=== PATIENT | male | born 1935 | race Caucasian/White ===

== ENCOUNTER → 2017-05-28 | Outpatient (CLI) | payer MEDICARE, OTHER ==
[2015-02-02 13:40] VITALS: BP 123/68
[~2017-05-28] MED LIST: ASPI81TA44 PO; ATOR10TA PO; CALC-98 PO; DOCU-109 PO; GABA-585 PO; GABA600T2 PO; GADOBUTROL 7.5 MMOL/7.5 ML VIAL IV ONE; HYDR-2679 PO; HYDR-2762 PO; HYDR-2802 PO; IBUP100T PO; IBUP200C9 PO; OMEG-33 PO; PRED-220 PO; TRAV5DRO OU; UBID50TA PO; VIT1CAPS11 PO
[2017-05-28 11:28] LABS: CREATININE 1.2 mg/dL (0.7-1.3); GFR 58.3
--- NOTE | 2017-05-28 12:35 | RAD ---
EXAMINATION: Magnetic resonance imaging (MRI) of the cervical spine without contrast HISTORY: Lower extremity weakness, left greater than right TECHNIQUE: Multiplanar multi-weighted MRI of the cervical spine was performed without intravenous contrast using the standard cervical spine protocol. Contrast information: None administered. COMPARISON: None available. FINDINGS: There is minimal anterolisthesis of C4 on C5. Vertebral bodies demonstrate normal signal intensity on all sequences. No acute fracture is identified; however, if trauma is suspected, a CT scan would be a more sensitive examination for fractures. The craniocervical junction is normal. The visualized portions of the skull base and the posterior fossa are normal. The spinal cord demonstrates normal signal intensity on all sequences. There is disc height loss and disc desiccation at C5-C6 and C6-C7. No soft tissue abnormality is identified. Normal signal voids are present in the vertebral arteries. C2-C3: The disk is normal in configuration. There is no facet arthropathy. There is no uncovertebral joint disease. There is no neuroforaminal stenosis. There is no spinal canal stenosis. C3-C4: There is minimal posterior disc osteophyte complex There is mild facet arthropathy. There is no uncovertebral joint disease. There is no neuroforaminal stenosis. There is no spinal canal stenosis. C4-C5: There is minimal posterior disc osteophyte complex. There is mild to moderate facet arthropathy. There is mild uncovertebral joint disease. There is mild right neuroforaminal stenosis. There is no spinal canal stenosis. C5-C6: There is a posterior disc osteophyte complex asymmetric to the right. There is mild to moderate facet arthropathy. There is mild uncovertebral joint disease. There is moderate right neuroforaminal stenosis. There is mild spinal canal stenosis. C6-C7: There is a posterior disc osteophyte complex There is mild facet arthropathy. There is moderate uncovertebral joint disease. There is moderate neuroforaminal stenosis. There is mild spinal canal stenosis. C7-T1: The disk is normal in configuration. There is no facet arthropathy. There is no uncovertebral joint disease. There is no neuroforaminal stenosis. There is no spinal canal stenosis. IMPRESSION: Mild to moderate degenerative changes of the cervical spine as described in detail above. There is minimal anterolisthesis of C4 on C5. Electronically signed by: Tiffanie Juarez MD (05/28/2017 12:32 PM) [id number]
--- NOTE | 2017-05-28 13:37 | RAD ---
EXAMINATION: Magnetic resonance imaging (MRI) of the lumbar spine without and with contrast HISTORY: Right leg progressive weakness. History of prior back surgeries. TECHNIQUE: Multiplanar multi-weighted MRI of the lumbar spine was performed without and with intravenous contrast using the standard lumbar spine protocol. Contrast information: 7.5 mL Gadolinium based contrast COMPARISON: MRI lumbar spine January 31, 2015 FINDINGS: There is minimal anterolisthesis of T11 on T12. There is minimal retrolisthesis of L2 on L3 and anterolisthesis of L5 on S1. Modic type I endplate degenerative changes are identified at L3-L4 with disc height loss and endplate edema. Modic type II endplate degenerative changes are identified at L2-L3 and L5-S1. There are no compression fractures. The conus medullaris terminates at the level of L1. There is T2 signal hyperintensity involving the cord at T11-T12 which may reflect myelomalacia versus cord edema. There is disc desiccation at all levels of the lumbar spine. Scattered diverticula are present without adjacent inflammatory changes. Otherwise, visualized portions of the abdomen are within normal limits. The aorta is normal. Enhancement along the disc is noted at levels of annular fissure at T12-L1, L3-L4, L4-L5 and L5-S1. There is disc bulge at T11-T12 with facet arthropathy and ligamentum flavum infolding resulting in severe spinal canal stenosis and cord signal alteration at this level. T12-L1: There is a disc bulge. Mild facet arthropathy. Mild right neuroforaminal stenosis. Mild spinal canal stenosis. L1-L2: The disc is normal in configuration. There is mild facet arthropathy. There is no neuroforaminal stenosis. There is no spinal canal stenosis. L2-L3: There is a disc bulge. There is moderate facet arthropathy. There is moderate, right greater than left, neuroforaminal stenosis. There is moderate spinal canal stenosis. L3-L4: There is diffuse disc bulge with superimposed central disc protrusion There is severe facet arthropathy with ligamentum flavum infolding. There is severe, right greater than left neuroforaminal stenosis. There is moderate to severe spinal canal stenosis. L4-L5: Disc bulge with central disc protrusion There is severe facet arthropathy. There is severe neuroforaminal stenosis. There is mild spinal canal stenosis. L5-S1: There is disc bulge with laminectomy changes. There is severe facet arthropathy. There is mild to moderate neuroforaminal stenosis. There is no spinal canal stenosis. IMPRESSION: 1. There is a disc bulge at T11-T12 resulting in moderate to severe spinal canal stenosis and cord signal alteration at this level, not significantly changed since January 31, 2015. 2. No significant change in alignment of the lumbar spine. Multilevel advanced degenerative disc disease appears similar to the prior examination. Electronically signed by: Tiffanie Juarez MD (05/28/2017 1:34 PM) [id number]
== END | disposition home or self-care (01) ==
LOC: MRI 10:40
PROVIDERS: ATTEND Internal Medicine
DX: M48.04 Spinal stenosis, thoracic region (principal); M47.892 Other spondylosis, cervical region; M51.36 Other intervertebral disc degeneration, lumbar region; R53.1 Weakness
CPT/HCPCS: 36415; 72141; 72158; 82565; A9585

== ENCOUNTER → 2017-08-28 | Outpatient (CLI) | payer MEDICARE, OTHER ==
[2017-08-28 13:49] LABS: ADD MAN DIFF? NO
[2017-08-28 13:52] LABS: BASO % 0 % (0-3); EOS # 0.1 x10^3/uL (0.0-0.7); EOS % 1 % (0-3); HEMOGLOBIN 15.6 g/dL (13.0-17.5); LYMPH # 2.7 x10^3/uL (1.0-4.8); LYMPH % 28 % (24-48); MEAN CORPUSCULAR HEMOGLOBIN 30 pg (25-35); MEAN CORPUSCULAR HGB CONC 33 g/dL (31-37); MEAN CORPUSCULAR VOLUME 92 fL (79-100); MONO # 0.9 x10^3/uL (0.0-1.1); MONO % 9 % (0-9); NEUT # 5.9 x10^3uL (1.8-7.7); NEUT % 61 % (31-73); PLATELET COUNT 272 x10^3/uL (140-400); RED CELL DISTRIBUTION WIDTH 13.6 % (11.5-14.5); WHITE BLOOD COUNT 9.6 x10^3/uL (4.0-11.0)
[2017-08-28 14:14] LABS: ALBUMIN 3.7 g/dL (3.4-5.0); ALK PHOS 69 U/L (46-116); ALT (SGPT) 29 U/L (16-63); ANION GAP 10 (6-14); AST (SGOT) 24 U/L (15-37); BLOOD UREA NITROGEN 30 mg/dL (8-26); BUN/CREATININE RATIO 23 (6-20); CALCIUM 8.9 mg/dL (8.5-10.1); CARBON DIOXIDE 25 mmol/L (21-32); CHLORIDE 106 mmol/L (98-107); CREATININE 1.3 mg/dL (0.7-1.3); GFR 53.1; GLUCOSE 123 mg/dL (70-99); POTASSIUM 4.1 mmol/L (3.5-5.1); SODIUM 141 mmol/L (136-145); TOTAL BILIRUBIN 0.5 mg/dL (0.2-1.0); TOTAL PROTEIN 7.5 g/dL (6.4-8.2)
[2017-08-29 04:15] LABS: MRSA BY PCR Negative (Negative)
== END | disposition home or self-care (01) ==
LOC: SURGPAT 13:27
DX: M48.04 Spinal stenosis, thoracic region (principal); M96.1 Postlaminectomy syndrome, not elsewhere classified
CPT/HCPCS: 36415; 80053; 85025; 87641

== ENCOUNTER 2017-09-01 08:37 | Observation (INO) | payer MEDICARE, OTHER ==
[2017-09-01] MEDS ORDERED: LIDOCAINE 1% PF 2 ML VIAL. ID ×2 (08:45→12:45)
[2017-09-01] MEDS ORDERED: MIDAZOLAM HCL/PF 2 MG/2 ML VIAL. IV (08:45)
[2017-09-01] MEDS ORDERED: fentaNYL PF VIAL 100 MCG/2 ML VIAL IV ×6 (08:45→13:30)
[2017-09-01] MEDS ORDERED: ePHEDrine PF IN SALINE 50 MG/5 ML DISP.SYRIN IV (09:07)
[2017-09-01] MEDS ORDERED: MIDAZOLAM HCL/PF 2 MG/2 ML VIAL. (09:07)
[2017-09-01] MEDS ORDERED: fentaNYL PF VIAL 100 MCG/2 ML VIAL (09:07)
[2017-09-01] MEDS ORDERED: ROCURONIUM 50 MG/5 ML VIAL. (09:08)
[2017-09-01] MEDS ORDERED: REMIFENTANIL 2 MG VIAL. IV (09:08)
[2017-09-01] MEDS: IV RINGERS,LACTATED 1000ML 1,000 ML IV ×3 (09:20→16:43)
[2017-09-01] MEDS ORDERED: GLYCOPYRROLATE 1 MG/5 ML VIAL. (10:49)
[2017-09-01] MEDS: BACITRACIN 50,000 UNIT in IV NORMAL SALINE 1000ML BAG 1,000 ML IRR (10:58)
[2017-09-01] MEDS: GELATIN SPONGE SIZE 100. (10:58)
[2017-09-01] MEDS ORDERED: NEOSTIGMINE METHYLSULFATE 5 MG/5 ML SYRINGE. (11:06)
[2017-09-01] MEDS: KETOROLAC 60 MG/2 ML INJ FOR OR. (11:08)
[2017-09-01] MEDS: BUPIVAC MPF-EPI 0.75%-1:200000 30 ML VIAL. IJ (11:08)
[2017-09-01] MEDS: THROMBIN TOPICAL 20,000 UNIT SPRAY.SYRN KIT TP (11:08)
[2017-09-01] MEDS ORDERED: LIDOCAINE 2% PF Vial for OR 5 ML VIAL. (11:36)
[2017-09-01] MEDS ORDERED: DEXAMETHASONE SOD PHOS 20 MG/5 ML VIAL. (11:36)
[2017-09-01] MEDS ORDERED: PROPOFOL 20 ML IV (11:36)
[2017-09-01] MEDS ORDERED: PHENYLEPHRINE 10 MG/ML VIAL. (11:37)
[2017-09-01] MEDS ORDERED: PHENYLEPHRINE in 0.9% NACL PF 1 MG/10 ML SYRINGE. IV (11:37)
[2017-09-01] MEDS ORDERED: ONDANSETRON PF 4 MG/2 ML VIAL. (11:37)
[2017-09-01] MEDS ORDERED: PROPOFOL 100 ML IV (11:37)
[2017-09-01] MEDS ORDERED: DESFLURANE > 120 MINUTES IH (12:21)
[2017-09-01] MEDS ORDERED: MORPHINE SULFATE 2 MG/ML DISP.SYRIN. IV (12:45)
[2017-09-01] MEDS ORDERED: HYDROmorphone 2 MG/ML VIAL IV (12:45)
[2017-09-01] MEDS ORDERED: PROCHLORPERAZINE 10 MG/2 ML VIAL. IV (12:45)
[2017-09-01] MEDS ORDERED: ONDANSETRON PF 4 MG/2 ML VIAL. IV ×2 (12:45→13:30)
[2017-09-01] MEDS ORDERED: ACETAMINOPHEN 325 MG TABLET. PO (13:30)
[2017-09-01] MEDS ORDERED: MAGNESIUM HYDROXIDE 2,400 MG/30 ML ORAL.SUSP. PO (13:30)
[2017-09-01] MEDS ORDERED: CALCIUM CARBONATE 500 MG TAB.CHEW PO (13:30)
[2017-09-01] MEDS ORDERED: MAG HYDROX/ALUMINUM HYD/SIMETH 30 ML ORAL.SUSP PO (13:30)
[2017-09-01] MEDS ORDERED: diphenhydrAMINE 50 MG/ML VIAL IV (13:30)
[2017-09-01] MEDS ORDERED: diphenhydrAMINE HCL 25 MG CAPSULE PO (13:30)
[2017-09-01] MEDS ORDERED: 0.9 % SODIUM CHLORIDE 10 ML DISP.SYRIN. IV (13:30)
[2017-09-01] MEDS ORDERED: HYDROcodone/APAP 7.5/325MG 1 TAB TABLET PO ×2 (13:45)
[2017-09-01] MEDS: METHOCARBAMOL 750 MG TABLET PO ×2 (14:00→21:01)
[2017-09-01] MEDS: OMEGA-3 FATTY ACIDS/FISH OIL 1,000 MG CAPSULE. PO (15:00)
[2017-09-01] MEDS: POTASSIUM CL 20MEQ D5-0.45NACL 1,000 ML IV (15:54)
[2017-09-01] MEDS: FAMOTIDINE 20 MG TABLET. PO (17:56)
[2017-09-01] MEDS: DOCUSATE SODIUM 100 MG CAPSULE. PO ×2 (21:01)
[2017-09-01] MEDS: LATANOPROST 0.005% OPHTH SOLUTION 2.5ML BOTTLE. OU (21:02)
[2017-09-02] MEDS: POTASSIUM CL 20MEQ D5-0.45NACL 1,000 ML IV (02:46)
[2017-09-02] MEDS: FAMOTIDINE 20 MG TABLET. PO (08:27)
[2017-09-02] MEDS: DOCUSATE SODIUM 100 MG CAPSULE. PO ×2 (08:29→09:00)
[2017-09-02] MEDS ORDERED: UBIDECARENONE 50 MG PO (09:00)
[2017-09-02] MEDS: OMEGA-3 FATTY ACIDS/FISH OIL 1,000 MG CAPSULE. PO (09:00)
[2017-09-02] MEDS: METHOCARBAMOL 750 MG TABLET PO (09:00)
[2017-09-02] MEDS: MULTIVITAMIN I-VITE TABLET. PO (09:00)
== END 2017-09-02 11:30 | disposition home or self-care (01) ==
LOC: SURG 08:37 → 4 SOUTHEST 13:21
DX: M48.04 Spinal stenosis, thoracic region (principal); H40.9 Unspecified glaucoma; M19.90 Unspecified osteoarthritis, unspecified site; H53.2 Diplopia; Z87.891 Personal history of nicotine dependence; Z98.890 Other specified postprocedural states
CPT/HCPCS: 63046; 76000; 88304; 88311; 93005; 97162-GP; 97530-GP; G0378; G0379; G8978-CI-GP; G8979-CI-GP; G8980-CI-GP; J0690; J1100; J1885; J2250; J2370; J2405; J2704; J2710; J3010; J3490; J7030